=== PATIENT | male | born 1990 | race Caucasian/White ===

== ENCOUNTER 2016-07-17 14:40 | Emergency (ER) | payer OTHER ==
[~2016-07-17] VITALS: Ht 177.8 cm; Wt 90.0 kg
[2016-07-17 14:46] VITALS: Ht 177.8 cm; Wt 90.0 kg
[2016-07-17 15:34] LABS: BUN/CREATININE RATIO 13.2 (10-20); CALCIUM 8.5 mg/dl (8.5-10.1); CREATININE 0.88 mg/dl (0.60-1.40); POTASSIUM 3.6 mmol/L (3.5-5.1)
[2016-07-17] MEDS ORDERED: IBUPROFEN 800 MG TAB PO STA (23:12)
[2016-07-17] MEDS ORDERED: IBUPROFEN 200 MG TAB ONE (23:18)
[2016-07-17 23:25] VITALS: BP 138/102; PULSE 101; O2SAT 97
--- NOTE | 2016-07-18 07:18 | EMERGENCY ROOM VISIT NOTE ---
ED Visit Note First contact with patient: 14:47 Chief complaint: Alcohol overdose. HPI: This 25-year-old white male presents to the ER for evaluation of an alcohol overdose. Patient arrives via BLS ambulance. They were found passed out at [facility]. The patient has vomited on himself. Pain is 0/10. He does respond to verbal cues. He denies any other areas of discomfort. He admits to drinking whiskey. Supplemental sheet was not completed by the patient. Previous surgeries: None Medical history: benign Current Medications: none Allergies: NKDA Family history: noncontributory Social History: Single. Employed. Positive EtOH use. REVIEW OF SYSTEMS: Was not completed as the patient was not able to answer reliably. Physical exam: vitals: Afebrile. Reviewed and filed in patient's chart general: Well-developed, well-nourished, young white male, who is visibly intoxicated. Actively dry heaving. Skin:Warm and dry with good turgor. No rashes or lesions. No ecchymosis or erythema. The patient is not diaphoretic. No abrasions. HEENT: Normocephalic atraumatic. Eyes PERRLA, EOMI. bilateral conjunctiva and scleral injection. Pupils are dilated and sluggish. Ears TMs intact bilaterally with good light reflexes. No erythema or bulging. No hemotympanum. Canals are patent. Nares patent bilaterally without turbinate enlargement. No significant drainage. No epistaxis. Oropharynx without erythema or exudate. Uvula midline, oral mucosa moist. No lesions present. Heart: Heart RRR. No MGR. Peripheral pulses are 2+. Lungs:Lungs are clear to auscultation. No crackles rhonchi or wheezing. Good air movement. The patient is able to take a deep breath. Abdomen: Abdomen was inspected, auscultated, and palpated. Bowel sounds present x 4. Soft, nontender to palpation. No hepato-splenomegaly. No masses noted. No rebound. No CVA tenderness. Musculoskeletal: Gross motor function of the upper and lower extremities is intact and unremarkable. Neurologic: Gross sensation is intact to the upper or lower extremities via soft touch. Patient is responsive to verbal stimuli. Data: FABIOLA was obtained today and was reviewed with the attending physician. It is 296. PRP is unremarkable. Impression: Acute alcohol overdose. Plan: Conservative care measures were instituted. Patient was placed in a prone position. Aspiration precautions were instituted. They were placed on the monitor and storage bin tender and watched throughout the day. Patient did sober up this evening. He was discharged to the home. alcohol overdose and alcohol intoxication handouts were provided. Tylenol and ibuprofen every 6 hours as needed for discomfort. Maintain hydration with nonalcoholic fluids. Current/Historical Medications No Active Prescriptions or Reported Meds Allergies Coded Allergies: No Known Allergies (Unverified , 07/03/11) Vital Signs Date Time Temp Pulse Resp B/P Pulse Ox O2 Delivery O2 Flow Rate FiO2 07/17/16 23:25 101 20 138/102 97 07/17/16 22:00 86 18 88/65 96 Room Air 07/17/16 21:36 89 18 100/61 98 Room Air 07/17/16 20:00 102 20 100/66 97 Room Air 07/17/16 18:56 100 16 119/79 96 07/17/16 17:15 93 13 95 07/17/16 17:10 101 8 97 07/17/16 17:05 99 15 96 07/17/16 17:00 99 14 96 07/17/16 16:59 146/73 07/17/16 16:55 98 15 96 07/17/16 16:50 91 14 96 07/17/16 16:45 88 13 97 07/17/16 16:40 87 13 97 07/17/16 16:35 84 7 96 07/17/16 16:30 87 5 97 07/17/16 16:29 129/72 07/17/16 16:25 88 13 96 07/17/16 16:20 94 16 95 07/17/16 16:15 93 15 95 07/17/16 16:10 94 16 95 07/17/16 16:05 87 15 98 07/17/16 16:00 84 13 98 07/17/16 15:59 118/79 07/17/16 15:55 92 16 96 07/17/16 15:50 85 16 96 07/17/16 15:45 86 17 97 07/17/16 15:40 95 15 98 07/17/16 15:35 85 15 97 07/17/16 15:30 82 13 98 07/17/16 15:29 135/87 2/25/17 15:25 87 12 98 07/17/16 15:21 89 07/17/16 15:20 84 15 96 07/17/16 15:17 119/91 07/17/16 14:46 95 18 142/97 94 Room Air Laboratory Results 07/17/16 14:50 Test 07/17/16 14:50 Anion Gap 13.0 mmol/L (3-11) Est Creatinine Clear Calc Drug Dose 146.1 ml/min Estimated GFR () 139.3 Estimated GFR (Non- 120.2 BUN/Creatinine Ratio 13.2 (10-20) Calcium Level 8.5 mg/dl (8.5-10.1) Ethyl Alcohol mg/dL 296.0 mg/dl (0-3) Medications Administered Medications (Trade) Dose Ordered Sig/Vinod Route Start Time Stop Time Status Last Admin Dose Admin Ibuprofen (Advil Tab) 800 mg STK-MED ONCE .ROUTE 07/17/16 23:18 07/17/16 23:20 DC 07/17/16 23:26 800 MG Departure Information Prescriptions No Active Prescriptions or Reported Meds Referrals [facility] (PCP) Patient Instructions My [facility]
== END 2016-07-17 23:25 | disposition home or self-care (01) ==
LOC: EDBD 14:40 → C.EDB 14:44
DX: F10.129 Alcohol abuse with intoxication, unspecified (principal)